=== PATIENT | male | born 1975 | race Caucasian/White ===

== ENCOUNTER 2025-07-05 13:55 | Inpatient (IN) | payer OTHER ==
[~2025-07-05] VITALS: Ht 165.1 cm; Wt 84.4 kg
[2025-07-05 14:04] VITALS: O2SAT 98
[2025-07-05 14:52] LABS: HEMATOCRIT. 30.3 % (42.0-52.0); HEMOGLOBIN. 10.0 g/dL (14.0-18.0); MEAN PLATELET VOLUME 7.7 fl (7.4-10.4); PLATELET 147 x1000/uL (130-400); RED BLOOD CELL COUNT 3.39 mill/uL (4.7-6.1); RED CELL DISTRIBUTION WIDTH 18.4 % (11.6-14.6)
[2025-07-05 15:01] LABS: INR 1.2
[2025-07-05 15:06] LABS: UREA NITROGEN BLOOD 39 mg/dL (9-23)
[2025-07-05 15:08] LABS: ASPARTATE AMINOTRANSFERASE 72 IU/L (<34); BILIRUBIN DIRECT 0.3 mg/dL (<=3.0); BILIRUBIN TOTAL 0.5 mg/dL (0.1-1.0); PROTEIN TOTAL 6.4 g/dL (6.0-8.3)
[2025-07-05] MEDS: SODIUM CHLORIDE 0.9% 500 ML IV ONE (15:11)
[2025-07-05] MEDS: PIPERACILLIN/TAZO 3.375G/50ML 50 ML IV ONE (15:12)
[2025-07-05 15:21] LABS: CREATININE 6.7 mg/dL (0.6-1.3)
[2025-07-05] MEDS: VANCOMYCIN 1G PREMIX 200 ML IV ONE (15:45)
[2025-07-05 17:41] LABS: BAND% 2.0 % (1.0-6.0); LYMPHOCYTES % MANUAL 6.0 % (20.0-50.0); MONOCYTES % MANUAL 7.0 % (2.0-8.0); NEUTROPHILS % MANUAL 85.0 % (45.0-75.0); PLATELET ESTIMATE NORMAL
[2025-07-05] MEDS: ACETAMINOPHEN 325MG TABLET PO ONE (20:03)
[2025-07-05 20:35] LABS: CLARITY URINE CLEAR (CLEAR); COLOR URINE YELLOW (YELLOW); GLUCOSE URINE 1+ (NEGATIVE); KETONES URINE NEGATIVE (NEGATIVE); LEUKOCYTE ESTERASE URINE NEGATIVE (NEGATIVE); NITRITE URINE NEGATIVE (NEGATIVE); OCCULT BLOOD URINE NEGATIVE (NEGATIVE); PH URINE >=9.0 (4.5-8.0); PROTEIN URINE 3+ (NEGATIVE); SPECIFIC GRAVITY URINE 1.014 (1.005-1.030); UROBILINOGEN URINE 0.2 E.U./dL (0.2-1.0)
[2025-07-05 20:54] LABS: RBC URINE 0-2 /hpf (0-2); SQUAMOUS EPITHELIAL CELL URINE RARE /lpf (RARE/1+); WBC URINE 0-2 /hpf (0-2)
[2025-07-05 20:55] LABS: BACTERIA URINE TRACE
[2025-07-05] MEDS ORDERED: NIFE20CA8 PO (22:53)
[2025-07-05] MEDS ORDERED: HYDR100T11 PO (22:54)
[2025-07-05] MEDS ORDERED: CLON1PAT10 TD (22:55)
[2025-07-05] MEDS ORDERED: FURO80TA3 MT (22:56)
[2025-07-05 22:59] VITALS: BP 128/71; PULSE 98; RESP 17; TEMP 37.7524
[2025-07-06] VITALS (14 sets, daily range): BP systolic 116–184; BP diastolic 52–93; PULSE 79–122; RESP 16–18; TEMP 36.114–36.8; O2SAT 96–100
[2025-07-06] MEDS: HYDROCODONE/ACETAMINOPHEN 5/325MG TABLET PO PRN (02:29)
[2025-07-06 06:42] LABS: BASOPHILS % 0.4 % (0.0-2.0); EOSINOPHILS % 0.2 % (0.0-5.0); HEMATOCRIT. 31.2 % (42.0-52.0); HEMOGLOBIN. 10.5 g/dL (14.0-18.0); LYMPHOCYTES % 11.4 % (20.0-50.0); MEAN PLATELET VOLUME 8.1 fl (7.4-10.4); MONOCYTES % 8.4 % (2.0-8.0); NEUTROPHILS % 79.6 % (40.0-76.0); PLATELET 141 x1000/uL (130-400); RED BLOOD CELL COUNT 3.47 mill/uL (4.7-6.1); RED CELL DISTRIBUTION WIDTH 18.2 % (11.6-14.6)
[2025-07-06] MEDS ORDERED: DEXTROSE 50% WATER 50ML SYRINGE IV PRN (08:30)
[2025-07-06] MEDS: CLONIDINE 0.1MG TABLET PO PRN (08:39)
[2025-07-06] MEDS: ENOXAPARIN 30MG/0.3ML SYR SUBCUT SCH (09:00)
[2025-07-06] MEDS ORDERED: LIDOCAINE HCL 1% 10 MG/ML 10ML VIAL ONE (09:01)
[2025-07-06] MEDS: BLOOD SUGAR DIAGNOSTIC STRIP TEST SCH (11:45)
[2025-07-06] MEDS: INSULIN LISPRO 100 UNITS/ML SUBCUT SCH (12:15)
[2025-07-06] MEDS: VANCOMYCIN 750MG/150ML (BAXTER) IV SCH (14:59)
[2025-07-06] MEDS ORDERED: NIFEDIPINE 20 MG PO PRN (16:45)
[2025-07-06] MEDS ORDERED: NIFEDIPINE 10MG CAPSULE PO PRN (17:00)
[2025-07-06] MEDS: HYDRALAZINE HCL 100MG TABLET PO PRN (18:12)
[2025-07-06] MEDS: FUROSEMIDE 40MG/4ML VIAL IVP SCH (18:32)
[2025-07-06] MEDS: NIFEDIPINE XL 60MG TAB PO SCH (20:37)
[2025-07-06] MEDS: CLONIDINE 0.1MG TABLET PO SCH (22:00)
[2025-07-07] VITALS: BP 146/65; PULSE 95; RESP 15; TEMP 36.7; O2SAT 97
[2025-07-07 04:00] VITALS: BP 136/60; PULSE 95; RESP 16; TEMP 35.7; O2SAT 98
[2025-07-07 07:46] LABS: HEMATOCRIT. 31.2 % (42.0-52.0); HEMOGLOBIN. 10.7 g/dL (14.0-18.0); MEAN PLATELET VOLUME 8.4 fl (7.4-10.4); PLATELET 166 x1000/uL (130-400); RED BLOOD CELL COUNT 3.51 mill/uL (4.7-6.1); RED CELL DISTRIBUTION WIDTH 18.0 % (11.6-14.6)
[2025-07-07 08:00] VITALS: BP 114/58; PULSE 93; RESP 18; TEMP 36.3; O2SAT 98
[2025-07-07 08:15] LABS: UREA NITROGEN BLOOD 42 mg/dL (9-23)
[2025-07-07 08:16] LABS: ASPARTATE AMINOTRANSFERASE 28 IU/L (<34)
[2025-07-07 08:17] LABS: BILIRUBIN DIRECT 0.2 mg/dL (<=3.0); BILIRUBIN TOTAL 0.2 mg/dL (0.1-1.0); PHOSPHORUS 3.9 mg/dL (2.5-4.9); PROTEIN TOTAL 6.5 g/dL (6.0-8.3)
[2025-07-07 08:32] LABS: ERYTHROCYTE SEDIMENTATION RATE 49 mm/hr (0-20)
[2025-07-07 08:36] LABS: HEPATITIS A AB IGM NEGATIVE (Negative); HEPATITIS B CORE AB IGM NEGATIVE (Negative)
[2025-07-07 08:37] LABS: HEPATITIS C AB NON REACTIVE (Neg) (Negative)
[2025-07-07] MEDS: HYDRALAZINE HCL 100MG TABLET PO SCH (08:38)
[2025-07-07] MEDS ORDERED: NIFEDIPINE XL 30MG TAB PO SCH (09:00)
[2025-07-07 09:53] LABS: C REACTIVE PROTEIN HIGH SENS 173.02 mg/l (<1.00); CREATININE 5.9 mg/dL (0.6-1.3)
[2025-07-07 12:00] VITALS: BP 119/58; PULSE 93; RESP 18; TEMP 36.2; O2SAT 99
[2025-07-07 13:57] LABS: BAND% 7.0 % (1.0-6.0); EOSINOPHILS % MANUAL 1.0 % (0.0-5.0); LYMPHOCYTES % MANUAL 15.0 % (20.0-50.0); MONOCYTES % MANUAL 12.0 % (2.0-8.0); NEUTROPHILS % MANUAL 65.0 % (45.0-75.0)
[2025-07-07 13:58] LABS: PLATELET ESTIMATE NORMAL
[2025-07-07 20:00] VITALS: BP 113/62; PULSE 71; RESP 17; TEMP 35.7; O2SAT 100
[2025-07-08] VITALS (15 sets, daily range): BP systolic 105–136; BP diastolic 49–70; PULSE 70–102; RESP 15–20; TEMP 35.9–37.2; O2SAT 95–99
[2025-07-08 07:22] LABS: HEMATOCRIT. 30.2 % (42.0-52.0); HEMOGLOBIN. 10.1 g/dL (14.0-18.0); MEAN PLATELET VOLUME 8.9 fl (7.4-10.4); PLATELET 178 x1000/uL (130-400); RED BLOOD CELL COUNT 3.41 mill/uL (4.7-6.1); RED CELL DISTRIBUTION WIDTH 17.8 % (11.6-14.6)
[2025-07-08 07:46] LABS: UREA NITROGEN BLOOD 53 mg/dL (9-23)
[2025-07-08 07:48] LABS: PHOSPHORUS 4.3 mg/dL (2.5-4.9)
[2025-07-08 08:13] LABS: CREATININE 6.9 mg/dL (0.6-1.3)
[2025-07-08 13:53] LABS: BAND% 2.0 % (1.0-6.0); LYMPHOCYTES % MANUAL 37.0 % (20.0-50.0); MONOCYTES % MANUAL 16.0 % (2.0-8.0); NEUTROPHILS % MANUAL 45.0 % (45.0-75.0); PLATELET ESTIMATE NORMAL
[2025-07-09] VITALS (10 sets, daily range): BP systolic 122–134; BP diastolic 55–76; PULSE 68–105; RESP 17–20; TEMP 36.2–36.61404; O2SAT 96–98
[2025-07-09] MEDS ORDERED: CLON0.1T PO (08:28)
[2025-07-09] MEDS ORDERED: NIFE-32 PO (08:28)
[2025-07-09 09:00] LABS: BASOPHILS % 1.3 % (0.0-2.0); EOSINOPHILS % 3.2 % (0.0-5.0); HEMATOCRIT. 32.5 % (42.0-52.0); HEMOGLOBIN. 10.9 g/dL (14.0-18.0); LYMPHOCYTES % 34.8 % (20.0-50.0); MEAN PLATELET VOLUME 8.5 fl (7.4-10.4); MONOCYTES % 14.0 % (2.0-8.0); NEUTROPHILS % 46.7 % (40.0-76.0); PLATELET 226 x1000/uL (130-400); RED BLOOD CELL COUNT 3.69 mill/uL (4.7-6.1); RED CELL DISTRIBUTION WIDTH 17.5 % (11.6-14.6)
[2025-07-09 09:37] LABS: UREA NITROGEN BLOOD 36 mg/dL (9-23)
[2025-07-09 09:39] LABS: PHOSPHORUS 3.4 mg/dL (2.5-4.9)
[2025-07-09 09:45] LABS: CREATININE 5.7 mg/dL (0.6-1.3)
[2025-07-10] VITALS: BP 113/68; PULSE 84; RESP 18; TEMP 36.4; O2SAT 99
[2025-07-10 04:00] VITALS: BP 121/67; PULSE 78; RESP 19; TEMP 36.5; O2SAT 98
[2025-07-10] MEDS: METRONIDAZOLE 250MG TABLET PO SCH (06:22)
[2025-07-10 08:00] VITALS: BP 104/56; PULSE 86; RESP 17; TEMP 36.5; O2SAT 100
[2025-07-10 12:00] VITALS: BP 128/68; PULSE 93; RESP 17; TEMP 36.6; O2SAT 98
[2025-07-10] MEDS ORDERED: NALOXONE HCL 0.4MG/ML VIAL IV PRN (15:30)
[2025-07-10 16:00] VITALS: BP 123/66; PULSE 92; RESP 18; TEMP 37.2; O2SAT 98
[2025-07-10 20:00] VITALS: BP 121/62; PULSE 92; RESP 17; TEMP 37.1; O2SAT 97
[2025-07-11] VITALS: BP 127/67; PULSE 80; RESP 16; TEMP 36.2; O2SAT 99
[2025-07-11 04:00] VITALS: BP 118/60; PULSE 79; RESP 17; TEMP 36.9; O2SAT 96
[2025-07-11 08:00] VITALS: BP 127/55; PULSE 78; RESP 18; TEMP 36.9; O2SAT 99
[2025-07-11 08:09] LABS: UREA NITROGEN BLOOD 48 mg/dL (9-23)
[2025-07-11 08:10] LABS: HEMATOCRIT. 29.0 % (42.0-52.0); HEMOGLOBIN. 9.9 g/dL (14.0-18.0); MEAN PLATELET VOLUME 7.8 fl (7.4-10.4); PLATELET 275 x1000/uL (130-400); RED BLOOD CELL COUNT 3.32 mill/uL (4.7-6.1); RED CELL DISTRIBUTION WIDTH 18.2 % (11.6-14.6)
[2025-07-11 08:11] LABS: PHOSPHORUS 5.4 mg/dL (2.5-4.9)
[2025-07-11 08:33] LABS: CREATININE 6.4 mg/dL (0.6-1.3)
[2025-07-11 12:00] VITALS: BP 144/72; PULSE 91; RESP 18; TEMP 36.8; O2SAT 98
[2025-07-11 16:00] VITALS: BP 98/53; PULSE 98; RESP 18; TEMP 36.9; O2SAT 100
[2025-07-11 16:48] LABS: LYMPHOCYTES % MANUAL 33.0 % (20.0-50.0); MONOCYTES % MANUAL 20.0 % (2.0-8.0); NEUTROPHILS % MANUAL 47.0 % (45.0-75.0); PLATELET ESTIMATE NORMAL
[2025-07-11 20:00] VITALS: BP 119/54; PULSE 98; RESP 18; TEMP 36.7; O2SAT 97
[2025-07-12] VITALS: BP 113/66; PULSE 92; RESP 18; TEMP 37.2; O2SAT 98
[2025-07-12 04:00] VITALS: BP 124/52; PULSE 80; RESP 20; TEMP 36.6; O2SAT 96
[2025-07-12 08:00] VITALS: BP 124/53; PULSE 85; RESP 18; TEMP 36.3; O2SAT 98
[2025-07-12 08:36] LABS: BASOPHILS % 1.0 % (0.0-2.0); EOSINOPHILS % 2.4 % (0.0-5.0); HEMATOCRIT. 30.2 % (42.0-52.0); HEMOGLOBIN. 10.0 g/dL (14.0-18.0); LYMPHOCYTES % 26.1 % (20.0-50.0); MEAN PLATELET VOLUME 8.0 fl (7.4-10.4); MONOCYTES % 11.6 % (2.0-8.0); NEUTROPHILS % 58.9 % (40.0-76.0); PLATELET 299 x1000/uL (130-400); RED BLOOD CELL COUNT 3.38 mill/uL (4.7-6.1); RED CELL DISTRIBUTION WIDTH 17.3 % (11.6-14.6)
[2025-07-12 08:46] LABS: UREA NITROGEN BLOOD 57 mg/dL (9-23)
[2025-07-12 08:48] LABS: PHOSPHORUS 5.9 mg/dL (2.5-4.9)
[2025-07-12 09:02] LABS: CREATININE 7.3 mg/dL (0.6-1.3)
[2025-07-12 12:00] VITALS: BP 133/67; PULSE 87; RESP 17; TEMP 36.9; O2SAT 96
[2025-07-12] MEDS ORDERED: METR-354 MT (13:21)
[2025-07-12 14:00] VITALS: BP 133/67; PULSE 87; RESP 17; TEMP 98.5
== END 2025-07-12 15:06 | disposition home or self-care (01) | DRG 314 ==
LOC: ER 14:50 → EDBEDREQTM 17:08 → EDBEDREQ 17:08 → ENRESERV 20:05 → 5WST 20:43
PROVIDERS: ADMIT Family Medicine Adult Medicine; ATTEND Family Medicine Adult Medicine
PROC: 5A1D70Z Performance of Urinary Filtration, Intermittent, Less than 6 Hours Per Day (ICD-10-PCS; principal; 2025-07-06)
PROC: 02PYX3Z Removal of Infusion Device from Great Vessel, External Approach (ICD-10-PCS; 2025-07-06)
PROC: 0JPTXXZ Removal of Tunneled Vascular Access Device from Trunk Subcutaneous Tissue and Fascia, External Approach (ICD-10-PCS; 2025-07-06)
PROC: 5A1D70Z Performance of Urinary Filtration, Intermittent, Less than 6 Hours Per Day (ICD-10-PCS; 2025-07-08)
PROC: 5A1D70Z Performance of Urinary Filtration, Intermittent, Less than 6 Hours Per Day (ICD-10-PCS; 2025-07-09)
DX: T80.211A Bloodstream infection due to central venous catheter, initial encounter (principal); A40.1 Sepsis due to streptococcus, group B; N18.6 End stage renal disease; J98.11 Atelectasis; I12.0 Hypertensive chronic kidney disease with stage 5 chronic kidney disease or end stage renal disease; M86.8X7 Other osteomyelitis, ankle and foot; Z99.2 Dependence on renal dialysis; E11.22 Type 2 diabetes mellitus with diabetic chronic kidney disease; D64.9 Anemia, unspecified; E78.5 Hyperlipidemia, unspecified; E11.65 Type 2 diabetes mellitus with hyperglycemia; D69.6 Thrombocytopenia, unspecified; E11.40 Type 2 diabetes mellitus with diabetic neuropathy, unspecified; E11.621 Type 2 diabetes mellitus with foot ulcer; E11.69 Type 2 diabetes mellitus with other specified complication; E66.9 Obesity, unspecified; Z20.822 Contact with and (suspected) exposure to COVID-19; Z79.899 Other long term (current) drug therapy; Y84.8 Other medical procedures as the cause of abnormal reaction of the patient, or of later complication, without mention of misadventure at the time of the procedure; Z82.49 Family history of ischemic heart disease and other diseases of the circulatory system; L97.512 Non-pressure chronic ulcer of other part of right foot with fat layer exposed; Z68.31 Body mass index [BMI] 31.0-31.9, adult
CPT/HCPCS: 36415; 36589; 71045; 73630; 73718; 80048; 80076; 80202; 81003; 82962; 83036; 83605; 83735; 83880; 84100; 84145; 85025; 85651; 86141; 86705; 86709; 87070; 87077; 87186; 87340; 87426; 90935; 93005; 93306; 93971; 96365; 96367; 99291; J0690; J1650; J1815; J1938; J2003; J2543; J3373; J7040